=== PATIENT | male | born 1975 | race Caucasian/White ===

== ENCOUNTER 2017-12-16 19:33 | Emergency (ER) | payer MEDICARE, MEDICAID ==
[~2017-12-16] VITALS: Ht 182.9 cm; Wt 70.5 kg
[2017-12-16 19:34] VITALS: BP 109/71
[2017-12-16] MEDS ORDERED: ibuprofen tablet 400 MG TABLET PO ONE (20:45)
[2017-12-16] MEDS ORDERED: bacitracin 15gm ointment TP ONE (21:35)
== END 2017-12-16 22:41 | disposition home or self-care (01) ==
LOC: ER 19:33
DX: S61.302A Unspecified open wound of right middle finger with damage to nail, initial encounter (principal); J45.909 Unspecified asthma, uncomplicated; W23.0XXA Caught, crushed, jammed, or pinched between moving objects, initial encounter; Y93.89 Activity, other specified; Y92.89 Other specified places as the place of occurrence of the external cause; Y99.8 Other external cause status
CPT/HCPCS: 64450; 99284; A6449

== ENCOUNTER 2018-01-18 21:48 | Emergency (ER) | payer MEDICARE, MEDICAID ==
[~2018-01-18] VITALS: Ht 182.9 cm; Wt 68.2 kg
[2018-01-18] MEDS ORDERED: TETanus/Pertussis (Acell)/Diphther VAC/PF (Tdap-Adult) 0.5ml syringe IMVAC ONE (22:40)
[2018-01-18] MEDS ORDERED: ibuprofen tablet 400 MG TABLET PO ONE (23:20)
[2018-01-18 23:26] LABS: ALBUMIN 3.5 G/DL (3.4-5.0); ANION GAP 8 (8-16); BLOOD UREA NITROGEN 20 MG/DL (7-18); CALCIUM 8.5 MG/DL (8.5-10.1); CHLORIDE 105 MMOL/L (99-107); CREATININE 1.11 MG/DL (0.60-1.10); GLUCOSE 102 MG/DL (70-104); POTASSIUM 3.8 MMOL/L (3.5-5.1); SODIUM 140 MMOL/L (135-145); TOTAL CARBON DIOXIDE 26.7 MMOL/L (24-32); eGFR 72 ML/MIN
[2018-01-18 23:27] LABS: BASOPHILS % (AUTO) 0.5 % (0-1); EOSINOPHILS # (AUTO) 0.2 X10'3 (0-0.9); HEMATOCRIT 37.7 % (42.0-52.0); HEMOGLOBIN 12.9 g/dl (14.0-17.9); LYMPHOCYTES % (AUTO) 22.8 % (21-51); MEAN CORPUSCULAR HEMOGLOBIN 30.9 PG (27.0-31.0); MEAN CORPUSCULAR HGB CONC 34.1 % (33.0-36.5); MEAN CORPUSCULAR VOLUME 90.7 FL (78-98); MEAN PLATELET VOLUME 7.6 FL (7.4-10.4); MONOCYTES # (AUTO) 0.4 X10'3 (0-0.9); MONOCYTES % (AUTO) 5.2 % (2-12); NEUTROPHILS % (AUTO) 69.5 % (42-75); PLATELET COUNT 275 X10'3 (140-440); RED BLOOD COUNT 4.15 X10'6 (4.70-6.10); RED CELL DISTRIBUTION WIDTH 13.8 % (11.5-14.5); WHITE BLOOD COUNT 8.6 X10'3 (4.5-11.0)
[2018-01-18 23:56] LABS: ALANINE AMINOTRANSFERASE 41 U/L (12-78); ALBUMIN/GLOBULIN RATIO 0.9 (1.1-1.5); ALKALINE PHOSPHATASE 114 IU/L (46-116); ASPARTATE AMINO TRANSFERASE 42 U/L (10-37); BILIRUBIN,TOTAL 0.3 MG/DL (0.1-1.0); TOTAL PROTEIN 7.5 G/DL (6.4-8.2)
[2018-01-19] MEDS ORDERED: DOXY100C43 PO (00:19)
[2018-01-19] MEDS ORDERED: IBUP-1985 PO (00:23)
[2018-01-19] MEDS ORDERED: ibuprofen tablet 400 MG TABLET PO ONE (00:25)
[2018-01-19 00:32] VITALS: BP 122/73
[2018-01-19] MEDS ORDERED: HYDROcodone/acetaminophen 5mg/325mg tablet PO ONE (00:35)
[2018-01-19] MEDS ORDERED: acetaminophen 325mg tablet PO ONE (00:40)
== END 2018-01-19 00:48 | disposition home or self-care (01) ==
LOC: ER 21:48
DX: S62.634G Displaced fracture of distal phalanx of right ring finger, subsequent encounter for fracture with delayed healing (principal); L08.9 Local infection of the skin and subcutaneous tissue, unspecified; F17.200 Nicotine dependence, unspecified, uncomplicated; J45.909 Unspecified asthma, uncomplicated; Z79.899 Other long term (current) drug therapy; W23.0XXD Caught, crushed, jammed, or pinched between moving objects, subsequent encounter
CPT/HCPCS: 36415; 73140; 80048; 80076; 85025; 85651; 90471; 90715; 99285

== ENCOUNTER 2019-04-15 02:58 | Emergency (ER) | payer MEDICARE, MEDICAID ==
[~2019-04-15] VITALS: Ht 182.9 cm; Wt 49.0 kg
[~2019-04-15 02:58] MED LIST: NO HOME MEDS
[2019-04-15 02:59] VITALS: BP 125/84
[2019-04-15] MEDS ORDERED: CYCL-1 PO (04:22)
== END 2019-04-15 04:34 | disposition home or self-care (01) ==
LOC: ER 02:58
DX: S29.012A Strain of muscle and tendon of back wall of thorax, initial encounter (principal); M62.830 Muscle spasm of back; J45.909 Unspecified asthma, uncomplicated; F12.90 Cannabis use, unspecified, uncomplicated; F15.90 Other stimulant use, unspecified, uncomplicated; Z79.899 Other long term (current) drug therapy; W01.0XXA Fall on same level from slipping, tripping and stumbling without subsequent striking against object, initial encounter; Y93.89 Activity, other specified; Y92.89 Other specified places as the place of occurrence of the external cause; Y99.8 Other external cause status
CPT/HCPCS: 99284

== ENCOUNTER 2020-07-24 16:42 | Emergency (ER) | payer MEDICARE, MEDICAID ==
[~2020-07-24] VITALS: Ht 182.9 cm; Wt 68.2 kg
[2020-07-24 16:45] VITALS: BP 140/90
[2020-07-24] MEDS ORDERED: ketorolac trometh. 30mg/ml inj. IM ONE (19:00)
== END 2020-07-24 19:15 | disposition home or self-care (01) ==
LOC: ER 16:42
DX: S46.912A Strain of unspecified muscle, fascia and tendon at shoulder and upper arm level, left arm, initial encounter (principal); X58.XXXA Exposure to other specified factors, initial encounter; Y93.89 Activity, other specified; Y92.89 Other specified places as the place of occurrence of the external cause; Y99.8 Other external cause status
CPT/HCPCS: 73030; 96372; 99283; J1885

== ENCOUNTER 2020-08-08 18:21 | Emergency (ER) | payer MEDICARE, MEDICAID ==
[~2020-08-08] VITALS: Ht 182.9 cm; Wt 70.5 kg
[2020-08-08 18:41] VITALS: BP 121/68
--- NOTE | 2020-08-08 19:15 | NUR ---
CXR DONE. PT REMAINS IN [facility] ISOLATION AREA, TENT 1
== END 2020-08-08 19:53 | disposition home or self-care (01) ==
LOC: ER 18:22
DX: J06.9 Acute upper respiratory infection, unspecified (principal); J45.909 Unspecified asthma, uncomplicated; F12.10 Cannabis abuse, uncomplicated; F15.10 Other stimulant abuse, uncomplicated; Z20.828 Contact with and (suspected) exposure to other viral communicable diseases
CPT/HCPCS: 71045; 87635; 99284; C9803

== ENCOUNTER 2021-06-15 12:24 | Emergency (ER) | payer BC, MEDICAID | END 2021-06-15 16:16 | disposition left against medical advice (07) | LOC: ER 12:24 | DX: M25.519 Pain in unspecified shoulder (principal); Z53.21 Procedure and treatment not carried out due to patient leaving prior to being seen by health care provider ==

== ENCOUNTER 2021-08-24 13:10 | Emergency (ER) | payer BC, MEDICAID ==
[~2021-08-24] VITALS: Ht 182.9 cm; Wt 70.5 kg
[2021-08-24 13:25] VITALS: BP 119/75
== END 2021-08-24 15:10 | disposition home or self-care (01) ==
LOC: ER 13:11
DX: S92.492A Other fracture of left great toe, initial encounter for closed fracture (principal); J45.909 Unspecified asthma, uncomplicated; F12.90 Cannabis use, unspecified, uncomplicated; F15.90 Other stimulant use, unspecified, uncomplicated; W20.8XXA Other cause of strike by thrown, projected or falling object, initial encounter; Y93.89 Activity, other specified; Y92.89 Other specified places as the place of occurrence of the external cause; Y99.8 Other external cause status
CPT/HCPCS: 73630; 99283

== ENCOUNTER 2022-03-08 00:33 | Emergency (ER) | payer BC, MEDICAID ==
[~2022-03-08] VITALS: Ht 172.7 cm; Wt 70.5 kg
[2022-03-08 00:38] VITALS: BP 139/81
[2022-03-08] MEDS ORDERED: ACET-3068 PO (02:15)
[2022-03-08] MEDS ORDERED: ibuprofen 200mg tablet PO ONE (02:20)
[2022-03-08] MEDS ORDERED: HYDROcodone/acetaminophen 10/325mg tab PO ONE (02:20)
--- NOTE | 2022-03-08 02:27 | NUR ---
po med x2 given
== END 2022-03-08 02:29 | disposition home or self-care (01) ==
LOC: ER 00:33
DX: S42.001A Fracture of unspecified part of right clavicle, initial encounter for closed fracture (principal); J45.909 Unspecified asthma, uncomplicated; F17.200 Nicotine dependence, unspecified, uncomplicated; F12.90 Cannabis use, unspecified, uncomplicated; F15.20 Other stimulant dependence, uncomplicated; W19.XXXA Unspecified fall, initial encounter; Y93.89 Activity, other specified; Y92.89 Other specified places as the place of occurrence of the external cause; Y99.8 Other external cause status
CPT/HCPCS: 29240; 73030; 99283; A4565

== ENCOUNTER 2022-09-13 10:20 | Inpatient (IN) | payer BC, MEDICAID ==
[~2022-09-13] VITALS: Ht 172.7 cm; Wt 68.0 kg
[2022-09-13] MEDS ORDERED: acetaminophen 325mg tablet PO STA (10:26)
[2022-09-13] MEDS ORDERED: normal saline 1000ML IV soln IV ONE (10:30)
[2022-09-13] MEDS ORDERED: ipratropium/albuterol 3ml nebule NEB ONE (10:30)
[2022-09-13] MEDS ORDERED: CefTRIAXone 2gm/D5W 50ml BAG 50 ML IV ONE (10:30)
[2022-09-13] MEDS ORDERED: azithromycin/NS 500mg/250ml 250 ML IV ONE (10:30)
[2022-09-13 10:45] LABS: BASOPHILS % (AUTO) 0.2 % (0-1); EOSINOPHILS % (AUTO) 0 % (0-6); HEMOGLOBIN 12.2 g/dl (14.0-17.9); LYMPHOCYTES # (AUTO) 0.7 X10'3 (1.1-4.8); LYMPHOCYTES % (AUTO) 3.4 % (21-51); MEAN CORPUSCULAR HEMOGLOBIN 30.4 PG (27.0-31.0); MEAN CORPUSCULAR HGB CONC 33.7 g/dL (33.0-36.5); MEAN CORPUSCULAR VOLUME 90.2 FL (78-98); MEAN PLATELET VOLUME 7.2 FL (7.4-10.4); MONOCYTES # (AUTO) 0.8 X10'3 (0-0.9); NEUTROPHILS # (AUTO) 19.2 X10'3 (1.8-7.7); NEUTROPHILS % (AUTO) 92.4 % (42-75); PLATELET COUNT 275 X10'3 (140-440); RED BLOOD COUNT 3.99 X10'6 (4.70-6.10); RED CELL DISTRIBUTION WIDTH 13.5 % (11.5-14.5); WHITE BLOOD COUNT 20.8 X10'3 (4.5-11.0)
[2022-09-13 11:00] LABS: ALBUMIN 3.5 G/DL (3.4-5.0); ALBUMIN/GLOBULIN RATIO 0.8 (1.1-1.5); ANION GAP 11 (8-16); BILIRUBIN,TOTAL 0.7 MG/DL (0.1-1.0); BLOOD UREA NITROGEN 19 MG/DL (7-18); BUN/CREATININE RATIO 11.7 (5.4-32.0); CALCIUM 9.1 MG/DL (8.5-10.1); CHLORIDE 97 MMOL/L (99-107); CREATININE 1.62 MG/DL (0.60-1.10); GLUCOSE 108 MG/DL (70-104); POTASSIUM 3.7 MMOL/L (3.5-5.1); SODIUM 133 MMOL/L (135-145); TOTAL CARBON DIOXIDE 25.5 MMOL/L (24-32); eGFR 46 ML/MIN
[2022-09-13 11:01] LABS: ALANINE AMINOTRANSFERASE 24 U/L (12-78); ALKALINE PHOSPHATASE 114 IU/L (46-116); ASPARTATE AMINO TRANSFERASE 36 U/L (10-37)
[2022-09-13 11:03] LABS: PLATELET ESTIMATE NORMAL; TOTAL CELLS COUNTED 100
[2022-09-13] MEDS ORDERED: magnesium hydroxide 30ml (MOM) UD suspension PO PRN (12:00)
[2022-09-13] MEDS ORDERED: magnesium 4gm in 100ml NS 100 ML IV PRN (12:00)
[2022-09-13] MEDS ORDERED: magnesium Cl slow-release 64mg tablet PO PRN (12:00)
[2022-09-13] MEDS ORDERED: bisacodyl 10mg suppository rectal RC PRN (12:00)
[2022-09-13] MEDS ORDERED: normal saline 1000ml 1,000 ML IV SCH (12:00)
[2022-09-13] MEDS ORDERED: ipratropium/albuterol 3ml nebule NEB PRN (12:00)
[2022-09-13] MEDS ORDERED: LORazepam 0.5 MG tablet PO PRN (12:00)
[2022-09-13] MEDS ORDERED: ondansetron/PF 4mg/2ml inj IV PRN (12:00)
[2022-09-13] MEDS ORDERED: acetaminophen 325mg tablet PO PRN ×2 (12:00)
[2022-09-13] MEDS ORDERED: mag hydrox/Alum hydrox/simeth 30ml oral suspension PO PRN (12:00)
[2022-09-13] MEDS ORDERED: HYDROcodone/acetaminophen 5mg/325mg tablet PO PRN (12:00)
[2022-09-13] MEDS ORDERED: ondansetron 4mg rapidly disintigrating tab PO PRN (12:00)
[2022-09-13] MEDS ORDERED: acetaminophen 650mg rectal suppository RC PRN (12:00)
[2022-09-13] MEDS ORDERED: potassium Cl 40MEQ/1/2NS 520ml 520 ML IV PRN (12:00)
[2022-09-13] MEDS ORDERED: potassium Cl 20 mEq SR tablet PO PRN ×2 (12:00)
[2022-09-13] MEDS ORDERED: HYDROcodone/acetaminophen 10/325mg tab PO PRN (12:00)
[2022-09-13] MEDS ORDERED: IBUP-1986 PO (12:42)
[2022-09-13 14:28] LABS: CLARITY,URINE CLEAR (Clear); COLOR,URINE YELLOW (Yellow); GLUCOSE, URINE NEGATIVE (Neg); KETONES,URINE NEGATIVE (Neg); LEUKOCYTE ESTERASE ,URINE NEGATIVE (Neg); NITRITES, URINE NEGATIVE (Neg); OCCULT BLOOD,URINE NEGATIVE (Neg); PH,URINE 6.5 (4.8-8.0); PROTEIN,URINE NEGATIVE (Neg)
[2022-09-13 14:29] LABS: UA COLLECTION TYPE URINAL
[2022-09-13 14:39] LABS: URINE AMPHETAMINE SCREEN POSITIVE (Neg); URINE BARBITUATE SCREEN NEGATIVE (Neg); URINE BENZODIAZEPINES SCREEN NEGATIVE (Neg); URINE CANNABINOID SCREEN POSITIVE (Neg); URINE COCAINE SCREEN NEGATIVE (Neg); URINE METHADONE SCREEN NEGATIVE (Neg); URINE OPIATE SCREEN NEGATIVE (Neg); URINE PHENCYCLIDINE SCREEN NEGATIVE (Neg)
[2022-09-13] MEDS ORDERED: ipratropium/albuterol 3ml nebule NEB SCH (15:00)
[2022-09-13 17:04] VITALS: BP 116/70
--- NOTE | 2022-09-13 19:28 | NUR ---
SPOKE WITH LT, WHO IS REQUESTING INFORMATION ABOUT THE PT. THE PT GAVE PERMISSION FOR AN UPDATE TO BE GIVEN TO TL.
[2022-09-13] MEDS ORDERED: docusate sod 100mg capsule PO SCH (20:00)
[2022-09-13] MEDS ORDERED: K and/or MAG REPLACEMENT MC SCH (20:00)
[2022-09-13] MEDS ORDERED: temazepam 15mg capsule PO PRN (21:00)
[2022-09-14] MEDS ORDERED: CefTRIAXone/D5W-Rocephin 1gm 50 ML IV SCH (08:00)
[2022-09-14] MEDS ORDERED: nicotine 14mg patch - 24hr TD SCH (08:00)
[2022-09-14] MEDS ORDERED: azithromycin/NS 500mg/250ml 250 ML IV SCH (08:00)
== END 2022-09-13 20:27 | disposition left against medical advice (07) | DRG 871 ==
LOC: ER 10:20 → ED HOLD 12:06
PROVIDERS: ADMIT Family Medicine; ATTEND Family Medicine
DX: A41.9 Sepsis, unspecified organism (principal); J18.9 Pneumonia, unspecified organism; J96.01 Acute respiratory failure with hypoxia; R65.21 Severe sepsis with septic shock; E87.1 Hypo-osmolality and hyponatremia; K92.0 Hematemesis; N17.9 Acute kidney failure, unspecified; Z20.822 Contact with and (suspected) exposure to COVID-19; Z53.29 Procedure and treatment not carried out because of patient's decision for other reasons; F15.10 Other stimulant abuse, uncomplicated; I10 Essential (primary) hypertension; J45.909 Unspecified asthma, uncomplicated; F17.200 Nicotine dependence, unspecified, uncomplicated; G89.29 Other chronic pain; Z79.899 Other long term (current) drug therapy
CPT/HCPCS: 36415; 71045; 80053; 80305; 81003; 83605; 84145; 85007; 85025; 87040; 87635; 93005; 94640; 94760; 99285; A4615; C9803; G0378; J0456; J0696; J7030; J7040